=== PATIENT | male | born 1985 | race American Indian/Alaskan Native ===

== ENCOUNTER 2019-06-05 08:03 | Emergency (ER) | payer OTHER ==
[2019-06-05] MEDS ORDERED: CLEOCIN IM STA (09:04)
[2019-06-05] MEDS ORDERED: TORADOL IM STA (09:04)
--- NOTE | 2019-06-05 09:28 | Emergency Department Report ---
- General Chief complaint: Extremity Injury, Lower Stated complaint: RT HIP SPIDER BITE/PAIN Time Seen by Provider: 06/05/19 08:58 Source: patient, EMS Mode of arrival: Wheelchair Limitations: No Limitations - History of Present Illness MD complaint: insect bite/sting -: Gradual Location: generalized Severity: mild Improves with: none Worsens with: none Associated symptoms: denies other symptoms Treatments Prior to Arrival: none - Related Data Previous Rx's Medication Instructions Recorded Last Taken Type Chlorhexidine Gluconate [Hibiclens] 10 ml TP BID #240 liquid 06/05/19 Unknown Rx Clindamycin [Clindamycin CAP] 300 mg PO Q6H #28 capsule 06/05/19 Unknown Rx Ketorolac [Toradol] 10 mg PO Q6H PRN #15 tablet 06/05/19 Unknown Rx Allergies Allergy/AdvReac Type Severity Reaction Status Date / Time acetaminophen [From Percocet] Allergy Unknown Verified 06/05/19 08:09 oxycodone [From Percocet] Allergy Unknown Verified 06/05/19 08:09 Abscess Boil HPI - HPI Chief Complaint: Extremity Injury, Lower Stated Complaint: RT HIP SPIDER BITE/PAIN Time Seen by Provider: 06/05/19 08:58 Home Medications: Previous Rx's Medication Instructions Recorded Last Taken Type Chlorhexidine Gluconate [Hibiclens] 10 ml TP BID #240 liquid 06/05/19 Unknown Rx Clindamycin [Clindamycin CAP] 300 mg PO Q6H #28 capsule 06/05/19 Unknown Rx Ketorolac [Toradol] 10 mg PO Q6H PRN #15 tablet 06/05/19 Unknown Rx Allergies/Adverse Reactions: Allergies Allergy/AdvReac Type Severity Reaction Status Date / Time acetaminophen [From Percocet] Allergy Unknown Verified 06/05/19 08:09 oxycodone [From Percocet] Allergy Unknown Verified 06/05/19 08:09 ED Review of Systems ROS: Stated complaint: RT HIP SPIDER BITE/PAIN Other details as noted in HPI Comment: All other systems reviewed and negative ED Past Medical Hx - Past Medical History Previous Medical History?: Yes Hx HIV: Yes Additional medical history: Neuropathy - Surgical History Past Surgical History?: No - Social History Smoking Status: Never Smoker Substance Use Type: Marijuana - Medications Home Medications: Home Medications Medication Instructions Recorded Confirmed Last Taken Type Chlorhexidine Gluconate [Hibiclens] 10 ml TP BID #240 liquid 06/05/19 Unknown Rx Clindamycin [Clindamycin CAP] 300 mg PO Q6H #28 capsule 06/05/19 Unknown Rx Ketorolac [Toradol] 10 mg PO Q6H PRN #15 tablet 06/05/19 Unknown Rx ED Physical Exam - General Limitations: No Limitations General appearance: alert, in no apparent distress - Head Head exam: Present: atraumatic, normocephalic - Eye Eye exam: Present: normal appearance - ENT ENT exam: Present: mucous membranes moist - Neck Neck exam: Present: normal inspection - Respiratory Respiratory exam: Present: normal lung sounds bilaterally. Absent: respiratory distress - Cardiovascular Cardiovascular Exam: Present: regular rate, normal rhythm. Absent: systolic mur mur, diastolic murmur, rubs, gallop - GI/Abdominal GI/Abdominal exam: Present: soft, normal bowel sounds - Rectal Rectal exam: Present: deferred - Extremities Exam Extremities exam: Present: normal inspection, tenderness - Expanded Lower Extremity Exam Right 1 - Abscess present with central fluctuance, erythema, induration arranging a 10 cm tenderness with palpation. There is some mild right inguinal lymphadenopathy appreciated as well - Back Exam Back exam: Present: normal inspection - Neurological Exam Neurological exam: Present: alert, oriented X3, CN II-XII intact - Psychiatric Psychiatric exam: Present: normal affect, normal mood - Skin Skin exam: Present: warm, dry, intact, erythema. Absent: rash ED Course Vital Signs 06/05/19 06/05/19 08:08 09:18 Temperature 97.9 F Pulse Rate 103 H Respiratory 18 18 Rate Blood Pressure 147/82 O2 Sat by Pulse 100 Oximetry - Procedure Description Procedures done: 1 prepped and draped in aseptic fashion. Anesthesia achieved with 2% lidocaine without epinephrine. A #15 blade was used to make a T inci jeannine into the wound. At about 2.5 cm x 2.5 cm. Copious amount of purulent drainage was evacuated and the loculations were broken. The wound was deep breathing in the margins were revised to remove the affected tissue. 500 mL of medical illnesses saline was used to irrigate the wound as well. Procedure was tolerated well. No complications. No packing ED Medical Decision Making - Medical Decision Making 33-year-old male with abscess S/inset bite to the right hip was attempting to take Bactrim but unable to tolerate due to nausea. Plan is to adjust his medications start him on clindamycin as well as some Zofran and and medicated Wass. Instructed to have the wound reevaluated in 48 hours. No signs of in the sepsis source or serious infection appears to still be local to the hip. The procedure was tolerated well and much of the infection was evacuated. - Differential Diagnosis infected insect bite,, abscess, cellulitis, Critical care attestation.: If time is entered above; I have spent that time in minutes in the direct care of this critically ill patient, excluding procedure time. ED Disposition Clinical Impression: Abscess, Encounter for incision and drainage procedure Disposition: TO HOME OR SELFCARE Is pt being admited?: No Does the pt Need Aspirin: No Condition: Stable Instructions: Incision and Drainage (ED), Acute Wound Care (ED), Abscess Incision and Drainage (ED), Abscess (ED) Referrals: BOGDAN PAREDES MD [Primary Care Provider] - 3-5 Days [facility] [Provider Group] - 06/07/19 (On return to the ED for reevaluation if no appointment )
[2019-06-05] MEDS ORDERED: XYLOCAINE 2% INFILTRATI STA (09:59)
[2019-06-05] MEDS ORDERED: NACL 0.9% 500 ML IR ONE (10:12)
[2019-06-05 12:05] VITALS: BP 113/78
== END 2019-06-05 12:06 | disposition home or self-care (01) ==
LOC: ED 08:03
DX: L02.31 Cutaneous abscess of buttock (principal)
CPT/HCPCS: 10060; 96372; 99283; J1885

== ENCOUNTER 2021-02-04 17:58 | Emergency (ER) | payer SELFPAY ==
[2021-02-04 19:59] VITALS: BP 118/77
--- NOTE | 2021-02-04 20:04 | Emergency Department Report ---
Chief Complaint: Extremity Injury, Lower Stated Complaint: RT FOOT PAIN Time Seen by Provider: 02/04/21 19:48 - HPI History of Present Illness: Patient is a 38-year-old male presents emergency room complaints of right heel pain that began 4 months ago. He denies any trauma. He denies any fall or injury. He denies stepping on anything or anything getting stuck in his foot. He states that the pain has been increasing. He denies any numbness or weakness. He denies any redness, swelling, increased warmth, purulent drainage. Past medical history of HIV. Allergy to oxycodone. Vitals are normal On exam: 0.5 cm hardened callus with mild ecchymosis underlying the skin to the right plantar heel, no erythema, no increased warmth, no signs of puncture wound, no drainage, full range of motion of the right lower extremity, neurovascular intact Examination appears consistent with hardened callus No signs of infection Patient has no bony tenderness palpation Has been occurring for 4 months Patient will be referred to residential support specialist and primary care Discuss strict return precautions Notable skin exam was performed and there is no threat to life or limb at this time MSE screening note: Focused history and physical exam performed. Due to findings the following was ordered: ED Disposition for MSE Clinical Impression: Encounter for medical screening examination Disposition: MED SCREENING EXAM-LEFT Is pt being admited?: No Does the pt Need Aspirin: No Condition: Stable Additional Instructions: may soak the foot in epsom salt. may use ice for 15 minutes at a time. may alternate tylenol or ibuprofen as needed for pain. rest the heel. follow up with a residential support specialist. follow up with primary care doctor. return to the emergency room for any new or worsening symptoms. Referrals: VANITA CHING DPM [Staff Physician] - 3-5 Days TRAVIS MADRIGAL MD [Staff Physician] - 3-5 Days FAZAL BAILON MD [Staff Physician] - 3-5 Days KELTON SAENZ MD [Staff Physician] - 3-5 Days [facility] [Provider Group] - 3-5 Days Time of Disposition: 20:01 Print Language: THAI
== END 2021-02-04 20:15 | disposition left against medical advice (07) ==
LOC: ED 17:58
DX: M79.604 Pain in right leg (principal); Z53.21 Procedure and treatment not carried out due to patient leaving prior to being seen by health care provider